=== PATIENT | female | born 1995 | race Caucasian/White ===

== ENCOUNTER 2024-09-28 10:48 | Outpatient (CLI) | payer BC, SELFPAY ==
--- NOTE | ~2024-09-28 | MR_ITS ---
EXAMINATION: MR shoulder LT wo con DATE: 09/28/2024 11:32 INDICATION: Left shoulder pain. TECHNIQUE: Magnetic resonance imaging (MRI) of the left shoulder was performed without intravenous co ntrast. Sequences included axial PD-weighted FS FSE, coronal oblique PD-weighted FS FSE and T2-weight ed FS FSE, and sagittal oblique T2-weighted FS FSE and T1-weighted FSE. COMPARISON: None. FINDINGS: Coracoacromial arch: The acromion undersurface is curved in morphology (type II). The acromioclavicular joint is normal. T here is mild subacromial/subdeltoid bursitis. Rotator cuff: There is severe supraspinatus tendinopathy with shallow bursal-sided fraying. There is mild infraspin ous tendinopathy. Teres minor tendon is normal. The subscapularis tendon is normal. Biceps tendon and glenoid labrum: Biceps tendon is in bicipital groove. Intra-articular biceps tendon is normal. The glenoid labrum is normal. Fluid: There is no glenohumeral joint effusion. Bones/cartilage: Glenoid cartilage is normal. Humeral head cartilage is normal. IMPRESSION: 1. Severe supraspinatus tendinopathy with shallow bursal-sided fraying. Reviewed, dictated and finalized at location A. [facility]
== END 2024-09-28 10:49 | disposition home or self-care (01) ==
PROVIDERS: PCP Family Medicine; Visit Provider Chiropractor
DX: M75.52 Bursitis of left shoulder (principal)
CPT/HCPCS: 73221